=== PATIENT | female | born 1940 | race Caucasian/White ===

== ENCOUNTER → 2016-12-10 | Outpatient (CLI) | payer MEDICARE, BC ==
[~2016-12-10] MED LIST: CELEBREX200 MG PO; CENTRUM SILVER1 TA1 PO; COQ10150 MG PO; CYANOCOBAL1000 MCG/1 IM; LEVOTHYROXIN0.075 MG PO; MAREPA1200 MG PO; OMEPRAZOLE40 MG PO; SIMVASTATIN40 MG PO
== END ==
LOC: MC.RAD 10:35
DX: Z12.31 Encounter for screening mammogram for malignant neoplasm of breast (principal)

== ENCOUNTER 2017-08-09 01:42 | Emergency (ER) | payer MEDICARE, BC ==
[~2017-08-09] VITALS: Ht 162.6 cm; Wt 84.1 kg
[2017-08-09 01:45] VITALS: BP 183/87; TEMP 98
[2017-08-09] MEDS ORDERED: NORCO 325 MG-51 TAB PO (02:56)
[2017-08-09 03:43] VITALS: PULSE 78
== END 2017-08-09 03:45 | disposition home or self-care (01) ==
LOC: COL.ER 01:42
DX: S22.42XA Multiple fractures of ribs, left side, initial encounter for closed fracture (principal); K21.9 Gastro-esophageal reflux disease without esophagitis; W01.190A Fall on same level from slipping, tripping and stumbling with subsequent striking against furniture, initial encounter
CPT/HCPCS: A9284; J1885

== ENCOUNTER → 2018-01-24 | Outpatient (CLI) | payer MEDICARE, BC ==
[~2018-01-24] MED LIST changes: +NORCO 325 MG-51 TAB PO
== END ==
LOC: MC.RAD 11:20
DX: Z12.31 Encounter for screening mammogram for malignant neoplasm of breast (principal)

== ENCOUNTER → 2019-01-30 | Outpatient (CLI) | payer MEDICARE, BC | LOC: MC.RAD 10:50 | DX: Z12.31 Encounter for screening mammogram for malignant neoplasm of breast (principal) ==

== ENCOUNTER 2019-11-16 15:41 | Inpatient (IN) | payer MEDICARE, BC ==
[~2019-11-16] VITALS: Ht 162.6 cm; Wt 71.8 kg
[2019-11-16] MEDS ORDERED: LIPITOR 40MG TA40 MG PO (17:25)
[2019-11-16] MEDS ORDERED: NORVASC 5MG5 MG/TAB PO (17:25)
[2019-11-16] MEDS ORDERED: VITAMIN D 1001000 IU PO (17:26)
[2019-11-16] MEDS ORDERED: HCTZ12.5TAB PO (17:27)
[2019-11-16 18:25] VITALS: BP 148/80; PULSE 77; TEMP 99.7
[2019-11-16 18:31] LABS: BASO % 0.4 % (0.0-2.0); EOS % 0.1 % (0-4.0); GRAN % 80.4 % (42.2-75.2); MEAN CELL VOLUME 72 fl (80.0-100.0); MEAN CORPUSCULAR HGB CONC 29 g/dl (33.0-37.0); MEAN PLATELET VOLUME 9.4 fl (7.4-10.4); MONO # 0.4 (0.1-0.6); MONO % 5.7 % (1.7-9.3); PLATELET COUNT 357 K/mm3 (130-400); RED BLOOD COUNT 2.72 M/mm3 (4.10-5.30); REDCELL DISTRIBUTION WIDTH-CV 17.1 % (11.5-14.5)
[2019-11-16 18:34] LABS: INR 1.1 (0.8-3.0); PROTHROMBIN TIME 12.4 SECONDS (9.7-12.8)
[2019-11-16 18:35] LABS: HEMATOCRIT 19.6 % (37.0-47.0); MEAN CORPUSCULAR HEMOGLOBIN 21 pg (27.0-31.0)
[2019-11-16 18:36] LABS: HEMOGLOBIN 5.6 g/dl (12.5-16.0)
[2019-11-16 18:40] LABS: ALBUMIN 4.1 gm/dL (3.5-5.0); BILIRUBIN,TOTAL 0.3 mg/dL (0.0-1.0); CALCIUM 9.3 mg/dL (8.4-10.2); POTASSIUM 4.1 mmol/L (3.4-5.0); TOTAL PROTEIN 7.3 gm/dL (6.4-8.2)
--- NOTE | 2019-11-16 18:57 | NUR ---
PATIENT DIRECT ADMIT PER PRIMARY CARE FOR LOW HEMAGLOBIN OBTAINED THIS AM. ARRIVED TO FLOOR TO ROOM 354 FROM ADMISSIONS IN . UPON ARRIVAL A/O X 4. DENIES C/O PAIN. DOES REPORT MILD SOA ON EXCERTION. SEE FLOW SHEET FOR DOCUMENTED FVS WITH SPO2 HIGH 90S ON ROOM AIR. LUNG SOUNDS CTA THROUGHOUT TI ASCULTATION. REPORTS FEELING WEAK AND RUBBERY. STATES "I HAVE BEEN FEELING BAD SINCE ARY". MEDICATIONS REVIEWED AND UPDATED PER MED REC. IV ACCESS WITH 20G TO RIGHT AC OBTAINED AND LABS DRAWN X 2 ATTEMPTS. PATIENT SCORES LOW FALL RISK. PER NURSING JUDGEMENT HIGH FALL RISK D/T DIAGNOSIS AND REPORTS OF FEELING WEAK. DISCUSSED FALL RISK WITH PATIENT AND ENCOURAGED TO CALL WHEN NEEDING HELP. ACKNOWLEGES UNDERSTANDING. PLAN OF CARE DISCUSSED WITH PATIENT AND SON. VISITING POLICY REVIEWED AND ACKNOWLEDGED. PATIENT ORIENTED TO ROOM. NO QUESTIONS OR CONCERNS AT END OF VISIT.
[2019-11-16 19:00] LABS: MAGNESIUM 2.1 mg/dL (1.6-2.3); PHOSPHOROUS 3.8 mg/dL (2.5-4.5)
[2019-11-16 19:00] LABS: IRON,SERUM 15 ug/dL (35-150)
[2019-11-16 19:09] VITALS: BP 138/60; PULSE 78; TEMP 98
[2019-11-16 19:09] LABS: TOTAL IRON BINDING CAPACITY 397 ug/dL (265-497)
[2019-11-16 22:27] VITALS: BP 128/59; PULSE 75; TEMP 98.3
--- NOTE | 2019-11-16 22:30 | NUR ---
1unit RBC transfusion started and verified with LUCY George.
[2019-11-16 22:40] VITALS: BP 126/49; PULSE 71; TEMP 98.5
[2019-11-16 22:55] VITALS: BP 126/48; PULSE 69
[2019-11-16 23:25] VITALS: BP 129/56; PULSE 70
[2019-11-17] VITALS (12 sets, daily range): BP systolic 128–147; BP diastolic 55–84; PULSE 62–83; TEMP 98.1–98.8
--- NOTE | 2019-11-17 01:30 | NUR ---
1unit RBC transfused, pt had no complications or complaints, VSS.
[2019-11-17 03:34] LABS: HEMATOCRIT 19.5 % (37.0-47.0); HEMOGLOBIN 5.8 g/dl (12.5-16.0)
--- NOTE | 2019-11-17 06:36 | NUR ---
Second unit PRBC started and transfusing at this time. Verified with LUCY George.
--- NOTE | 2019-11-17 06:42 | NUR ---
Bedside shift report given to LUCY Lyons.
--- NOTE | 2019-11-17 09:21 | NUR ---
PRAVEEN attended clinical rounds. The patient is receiving her second unit of blood. She is to have an upper endoscopy today. PRAVEEN then followed up with the patient to discuss discharge plan. The patient lives alone in [place]. Her son, Pradeep Marroquin (ph#[phone]), lives in [place] and her daughter, Niru Serna (ph#[phone]), lives in [place]. The patient states that Niru came up to [place] to see her. She reports independence with ADLs and states that she may have a walker in her basement. The patient's PCP is Dr. Den Marcelino and she receives her medications at [facility]. She reports no difficulties obtaining her meds. The patient's advanced directives are in EMR. Her DPOA-HC is her her son (Pradeep) and daughter (Niru). The patient plans to return home upon discharge. She states that she has some concerns with how her mobility will be, when she is ready to discharge. PRAVEEN to ask the PA-C to order PT. PRAVEEN to continue to follow.
--- NOTE | 2019-11-17 11:16 | NUR ---
PATIENT TOLERATE SECOND UNIT OF BLOOD. IV SITE WAS CHANGED DUE TO INFILTRATION
[2019-11-17 13:08] LABS: CALCIUM 8.7 mg/dL (8.4-10.2); CREATININE, serum 0.71 (0.52-1.25); POTASSIUM 3.9 mmol/L (3.4-5.0)
[2019-11-17 14:39] LABS: HEMATOCRIT 23.1 % (37.0-47.0)
--- NOTE | 2019-11-17 18:01 | NUR ---
Patient is alert and oriented. Hgb level at 7.0. patient is sceduled for endoscopy and colonoscopy to find any abdominal bleeding. Patient signed conscent. Bowel prep starts this evening.
--- NOTE | 2019-11-17 20:00 | NUR ---
Received report from LUCY Lyons. Pt alert and oriented x4. Denies any pain or discomfort at this time. States feeling a little better today. Meds administered as ordered. IVF infusing to LAC, intact, dressing CDI. Tele monitor in place, leads checked. Pt understands POC and verbalized understanding of consuming bowel prep, consent signed for colonoscopy. Needs met at this time. call light wtihin reach.
[2019-11-17 22:49] LABS: HEMATOCRIT 24.8 % (37.0-47.0); HEMOGLOBIN 7.3 g/dl (12.5-16.0)
[2019-11-18] VITALS (11 sets, daily range): BP systolic 134–170; BP diastolic 52–94; PULSE 66–85; TEMP 97.4–98.7
--- NOTE | 2019-11-18 01:09 | NUR ---
Pt consumed all miralax bowel prep.
[2019-11-18 06:06] LABS: BASO % 0.7 % (0.0-2.0); EOS % 0.2 % (0-4.0); GRAN # 3.9 (1.4-6.5); LYMPH # 1.3 (1.2-3.4); LYMPH % 21.2 % (20.0-51.0); MEAN CELL VOLUME 76 fl (80.0-100.0); MEAN CORPUSCULAR HGB CONC 29 g/dl (33.0-37.0); MONO # 0.7 (0.1-0.6); MONO % 11.4 % (1.7-9.3); RED BLOOD COUNT 3.05 M/mm3 (4.10-5.30); REDCELL DISTRIBUTION WIDTH-CV 18.4 % (11.5-14.5)
[2019-11-18 06:09] LABS: HEMATOCRIT 23.1 % (37.0-47.0); MEAN CORPUSCULAR HEMOGLOBIN 22 pg (27.0-31.0); PLATELET COUNT 256 K/mm3 (130-400)
[2019-11-18 06:10] LABS: HEMOGLOBIN 6.8 g/dl (12.5-16.0)
[2019-11-18 06:18] LABS: ALBUMIN 3.1 gm/dL (3.5-5.0); BILIRUBIN,TOTAL 0.4 mg/dL (0.0-1.0); CALCIUM 8.3 mg/dL (8.4-10.2); CREATININE, serum 0.61 (0.52-1.25); POTASSIUM 3.6 mmol/L (3.4-5.0)
--- NOTE | 2019-11-18 06:23 | NUR ---
Pt verbalized use or BR having watery stools, blue/green in color. Meds administered. No complaints made during this shift. Call light within reach.
--- NOTE | 2019-11-18 06:24 | NUR ---
Received critical HGB 6.8 from lab. Received phone orders from GI MD Dr Shah to transfuse 1unit PRBC prior to colonoscopy. Orders placed, waiting for PRBC at this time.
--- NOTE | 2019-11-18 07:21 | NUR ---
Report given to LUCY Lyons.
[2019-11-18 15:42] LABS: HEMATOCRIT 30.6 % (37.0-47.0); HEMOGLOBIN 9.7 g/dl (12.5-16.0)
--- NOTE | 2019-11-18 20:09 | NUR ---
Received report from LUCY Lyons. Pt resting in bed comfortably. A/Ox4. Denies any pain or discomfort at this time however she states " I don't feel any better from when I first came here." NAD. Tele monitor in place, leads checked. INT to RH and LAC intact, flushed, dressing CDI. Needs met at this time. Call light within reach.
[2019-11-19] VITALS (11 sets, daily range): BP systolic 119–154; BP diastolic 68–82; PULSE 72–87; TEMP 97.9–99
--- NOTE | 2019-11-19 06:10 | NUR ---
Pt uneventful during this shift. Meds administered. Needs met. call light within reach.
[2019-11-19 07:05] LABS: BASO % 0.6 % (0.0-2.0); GRAN # 4.9 (1.4-6.5); GRAN % 69.8 % (42.2-75.2); LYMPH # 1.3 (1.2-3.4); LYMPH % 19.1 % (20.0-51.0); MEAN CELL VOLUME 77 fl (80.0-100.0); MEAN CORPUSCULAR HGB CONC 31 g/dl (33.0-37.0); MEAN PLATELET VOLUME 9.3 fl (7.4-10.4); MONO # 0.7 (0.1-0.6); MONO % 10.4 % (1.7-9.3); PLATELET COUNT 252 K/mm3 (130-400); RED BLOOD COUNT 3.51 M/mm3 (4.10-5.30); REDCELL DISTRIBUTION WIDTH-CV 19.5 % (11.5-14.5)
--- NOTE | 2019-11-19 07:10 | NUR ---
Report given to LUCY Lindquist.
[2019-11-19 07:14] LABS: CALCIUM 8.6 mg/dL (8.4-10.2); CREATININE, serum 0.62 (0.52-1.25); HEMATOCRIT 27.1 % (37.0-47.0); HEMOGLOBIN 8.4 g/dl (12.5-16.0); MEAN CORPUSCULAR HEMOGLOBIN 24 pg (27.0-31.0); POTASSIUM 3.4 mmol/L (3.4-5.0)
--- NOTE | 2019-11-19 07:40 | NUR ---
COMPLAINING OF HEADACHE 03/23. OFFERED TO CALL THE DR FOR TYLENOL ORDERS, PT SAID THAT WOULDN'T HELP AND SHE JUST NEEDED COFFEE. ASSESSMENT PERFORMED, MEDICATIONS GIVEN. PT REFUSED NORVASC, SAID "UNTIL THEY FIGURE OUT WHERE THIS BLEEDING IS COMING FROM IM NOT TAKING ANY NEW MEDICATIONS". TRIED TO EDUCATE ON PURPOSE OF MEDICATION AND IT'S ACTION IN THE BODY BUT PT STILL REFUSED. STARTED FRESH POT OF COFFEE AND BROUGHT HER A CUP. WARNED HER OF HEAT.
[2019-11-19] MEDS ORDERED: FERROUS SU325 MG/TAB PO (08:10)
--- NOTE | 2019-11-19 10:21 | NUR ---
ORTHOSTATIC BP'S PERFORMED ON PT. D/C'D RH IV DUE TO IT NOT FLUSHING AND PAINFUL DURING FLUSHING, WRAPPED LAC IV FOR SHOWER. GOWN, TOWELS, SOAP, DEODERANT PROVIDED.
[2019-11-19 16:59] LABS: HEMATOCRIT 31.3 % (37.0-47.0); HEMOGLOBIN 9.5 g/dl (12.5-16.0)
--- NOTE | 2019-11-19 17:27 | NUR ---
pt states lidocaine patch is assisting with the neck pain. pt had visit with daughter where PAGwendolyn, talked about the plan of care. medications given, bp meds on hold due to orthostatic bp being positive. pt headache earlier relieved with caffiene. no other needs at this time.
--- NOTE | 2019-11-19 20:00 | NUR ---
Received report from LUCY Lindquist. A/Ox4. Pt states feeling much better today. Anticipats going home tmrw. Lidocaince patch to back of neck removed. pt states relief of neck pain with use of patch. No complaints made at this time. INT to LAC intact, flushed, dressing CDI. Call light within reach.
[2019-11-20 03:18] VITALS: BP 157/79; PULSE 74; TEMP 98.6
--- NOTE | 2019-11-20 06:51 | NUR ---
Pt made no complaints throughout the night. Meds administered. Call light within reach.
--- NOTE | 2019-11-20 07:08 | NUR ---
Report given to LUCY Lyons.
[2019-11-20 07:09] LABS: BASO % 0.6 % (0.0-2.0); EOS % 0.8 % (0-4.0); GRAN # 3.3 (1.4-6.5); GRAN % 63.7 % (42.2-75.2); LYMPH # 1.1 (1.2-3.4); LYMPH % 22.2 % (20.0-51.0); MEAN CELL VOLUME 77 fl (80.0-100.0); MEAN CORPUSCULAR HGB CONC 31 g/dl (33.0-37.0); MEAN PLATELET VOLUME 9.6 fl (7.4-10.4); MONO # 0.6 (0.1-0.6); MONO % 12.5 % (1.7-9.3); PLATELET COUNT 219 K/mm3 (130-400); RED BLOOD COUNT 3.55 M/mm3 (4.10-5.30); REDCELL DISTRIBUTION WIDTH-CV 19.8 % (11.5-14.5)
[2019-11-20 07:13] VITALS: BP 137/79; PULSE 82; TEMP 98.9
[2019-11-20 07:31] LABS: CALCIUM 8.6 mg/dL (8.4-10.2); CHOLESTEROL RISK RATIO 2.8; CREATININE, serum 0.77 (0.52-1.25); POTASSIUM 3.4 mmol/L (3.4-5.0)
[2019-11-20 07:32] LABS: HEMATOCRIT 27.3 % (37.0-47.0); HEMOGLOBIN 8.4 g/dl (12.5-16.0); MEAN CORPUSCULAR HEMOGLOBIN 24 pg (27.0-31.0)
--- NOTE | 2019-11-20 11:10 | NUR ---
Patient is alert and oriented. denies any pain. clear lung sound, normal heart sound. 1+ edema on bilateral lower extremity. Patient verbalize she feels better compared to time of admission. Patient is excited about discharge today.
--- NOTE | 2019-11-20 12:38 | NUR ---
Patient received information on new medication Ferrous Sulfate, future appointment and Anemia diagnoses. IV site have some pus. Discontinued IV, cleaned the site with antiseptic towel. Patient discharged with Daughter.
== END 2019-11-20 11:55 | disposition home or self-care (01) | DRG 392 ==
LOC: MEDICAL 15:41
PROVIDERS: Internal Medicine Gastroenterology; Physician Assistant; ADMIT Student in an Organized Health Care Education/Training Program
PROC: 0DB78ZX Excision of Stomach, Pylorus, Via Natural or Artificial Opening Endoscopic, Diagnostic (ICD-10-PCS; 2019-11-18)
PROC: 0DB38ZX Excision of Lower Esophagus, Via Natural or Artificial Opening Endoscopic, Diagnostic (ICD-10-PCS; 2019-11-18)
PROC: 0DDL8ZX Extraction of Transverse Colon, Via Natural or Artificial Opening Endoscopic, Diagnostic (ICD-10-PCS; principal; 2019-11-18 09:00)
PROC: 0DB98ZX Excision of Duodenum, Via Natural or Artificial Opening Endoscopic, Diagnostic (ICD-10-PCS; 2019-11-18 09:00)
DX: K31.89 Other diseases of stomach and duodenum (principal); E87.1 Hypo-osmolality and hyponatremia; K92.1 Melena; D50.0 Iron deficiency anemia secondary to blood loss (chronic); K44.9 Diaphragmatic hernia without obstruction or gangrene; K21.9 Gastro-esophageal reflux disease without esophagitis; K58.9 Irritable bowel syndrome, unspecified; E03.9 Hypothyroidism, unspecified; Z66 Do not resuscitate; I95.1 Orthostatic hypotension; K57.90 Diverticulosis of intestine, part unspecified, without perforation or abscess without bleeding; K22.70 Barrett's esophagus without dysplasia; K64.0 First degree hemorrhoids; G89.29 Other chronic pain; M54.2 Cervicalgia; E78.5 Hyperlipidemia, unspecified; I10 Essential (primary) hypertension; M19.90 Unspecified osteoarthritis, unspecified site; D51.9 Vitamin B12 deficiency anemia, unspecified; Z90.710 Acquired absence of both cervix and uterus; Z87.891 Personal history of nicotine dependence
CPT/HCPCS: 99223-AI; 99232-AI; 99233-AI; 99239; C9113; J0360; J2704; J7030; P9016

== ENCOUNTER → 2019-11-23 | Outpatient (CLI) | payer MEDICARE, BC ==
[~2019-11-23] MED LIST changes: +FERROUS SU325 MG/TAB PO; +HCTZ12.5TAB PO; +LIPITOR 40MG TA40 MG PO; +NORVASC 5MG5 MG/TAB PO; +VITAMIN D 1001000 IU PO
[2019-11-23 10:34] LABS: HEMATOCRIT 32.8 % (37.0-47.0); HEMOGLOBIN 9.7 g/dl (12.5-16.0); MEAN CELL VOLUME 79 fl (80.0-100.0); MEAN CORPUSCULAR HEMOGLOBIN 23 pg (27.0-31.0); MEAN CORPUSCULAR HGB CONC 30 g/dl (33.0-37.0); MEAN PLATELET VOLUME 9.3 fl (7.4-10.4); PLATELET COUNT 254 K/mm3 (130-400); RED BLOOD COUNT 4.16 M/mm3 (4.10-5.30); REDCELL DISTRIBUTION WIDTH-CV 21.7 % (11.5-14.5)
[2019-11-23 10:46] LABS: CALCIUM 9.6 mg/dL (8.4-10.2); CREATININE, serum 0.77 (0.52-1.25); POTASSIUM 4.5 mmol/L (3.4-5.0)
== END ==
LOC: COL.LAB 09:29
PROVIDERS: Physician Assistant
DX: D64.9 Anemia, unspecified (principal)

== ENCOUNTER → 2021-04-08 | Outpatient (CLI) | payer MEDICARE, BC ==
[~2021-04-08] MED LIST changes: +PRILOSEC 20MG20 MG PO; +SYNTHROID0.075 MG/T PO; -VITAMIN D 1001000 IU PO; +VITAMIN D31000 IU PO
== END ==
LOC: MHCPAIN 10:30
DX: M47.812 Spondylosis without myelopathy or radiculopathy, cervical region (principal); M54.12 Radiculopathy, cervical region; M54.81 Occipital neuralgia; G89.29 Other chronic pain
CPT/HCPCS: G0463

== ENCOUNTER → 2021-04-16 | Outpatient (CLI) | payer MEDICARE, BC | LOC: MC.RAD 11:45 | DX: Z12.31 Encounter for screening mammogram for malignant neoplasm of breast (principal) ==

== ENCOUNTER → 2021-04-17 | Outpatient (CLI) | payer MEDICARE, BC | LOC: MHCPAIN | DX: M47.812 Spondylosis without myelopathy or radiculopathy, cervical region (principal); M54.81 Occipital neuralgia; M54.12 Radiculopathy, cervical region | CPT/HCPCS: J1040; J1100; Q9967 ==

== ENCOUNTER → 2021-04-30 | Outpatient (CLI) | payer MEDICARE, BC | LOC: MHCPAIN 10:32 | DX: M47.812 Spondylosis without myelopathy or radiculopathy, cervical region (principal); M54.2 Cervicalgia; R51.9 Headache, unspecified | CPT/HCPCS: G0463 ==

== ENCOUNTER → 2021-05-22 | Outpatient (CLI) | payer MEDICARE, BC | LOC: MHCPAIN 08:41 | DX: M47.812 Spondylosis without myelopathy or radiculopathy, cervical region (principal); M54.2 Cervicalgia; R51.9 Headache, unspecified | CPT/HCPCS: J0461 ==

== ENCOUNTER → 2021-05-27 | Outpatient (CLI) | payer MEDICARE, BC | LOC: MHCPAIN 10:52 | DX: M47.812 Spondylosis without myelopathy or radiculopathy, cervical region (principal) | CPT/HCPCS: G0463 ==

== ENCOUNTER → 2021-06-12 | Outpatient (CLI) | payer MEDICARE, BC | LOC: MHCPAIN 08:08 | DX: M47.812 Spondylosis without myelopathy or radiculopathy, cervical region (principal); M54.2 Cervicalgia; R51.9 Headache, unspecified | CPT/HCPCS: J0461 ==

== ENCOUNTER → 2021-07-10 | Outpatient (CLI) | payer MEDICARE, BC | LOC: MHCPAIN 09:10 | DX: M47.812 Spondylosis without myelopathy or radiculopathy, cervical region (principal); M54.2 Cervicalgia; R51.9 Headache, unspecified | CPT/HCPCS: G0463; J1100; J2250; J3010 ==

== ENCOUNTER → 2021-09-02 | Outpatient (CLI) | payer MEDICARE, BC | LOC: MHCPAIN 10:19 | DX: M47.812 Spondylosis without myelopathy or radiculopathy, cervical region (principal); M54.2 Cervicalgia; R51.9 Headache, unspecified | CPT/HCPCS: G0463 ==

== ENCOUNTER → 2021-12-31 | Outpatient (CLI) | payer MEDICARE, BC | LOC: MHCPAIN 09:49 | DX: M47.817 Spondylosis without myelopathy or radiculopathy, lumbosacral region (principal); M54.50 Low back pain, unspecified; M54.81 Occipital neuralgia; M54.2 Cervicalgia | CPT/HCPCS: G0463 ==

== ENCOUNTER → 2022-01-15 | Outpatient (CLI) | payer MEDICARE, BC | LOC: MHCPAIN 07:53 | DX: M47.817 Spondylosis without myelopathy or radiculopathy, lumbosacral region (principal); M53.3 Sacrococcygeal disorders, not elsewhere classified; M54.50 Low back pain, unspecified ==

== ENCOUNTER → 2022-02-05 | Outpatient (CLI) | payer MEDICARE, BC | LOC: MHCPAIN 08:30 | DX: M47.817 Spondylosis without myelopathy or radiculopathy, lumbosacral region (principal); M54.50 Low back pain, unspecified; M53.3 Sacrococcygeal disorders, not elsewhere classified | CPT/HCPCS: G0463 ==

== ENCOUNTER → 2022-04-06 | Outpatient (CLI) | payer MEDICARE, BC | LOC: MHCPAIN 12:25 | DX: M54.50 Low back pain, unspecified (principal); M47.817 Spondylosis without myelopathy or radiculopathy, lumbosacral region; M53.3 Sacrococcygeal disorders, not elsewhere classified | CPT/HCPCS: G0463; J1100; J2250; J3010 ==

== ENCOUNTER → 2022-04-20 | Outpatient (CLI) | payer MEDICARE, BC | LOC: MHCPAIN 10:09 | DX: M47.812 Spondylosis without myelopathy or radiculopathy, cervical region (principal); M54.2 Cervicalgia; M54.81 Occipital neuralgia; G44.86 Cervicogenic headache | CPT/HCPCS: G0463 ==

== ENCOUNTER → 2022-07-27 | Outpatient (CLI) | payer MEDICARE, BC | LOC: MHCPAIN 11:36 | DX: M47.898 Other spondylosis, sacral and sacrococcygeal region (principal); M53.3 Sacrococcygeal disorders, not elsewhere classified; M54.50 Low back pain, unspecified | CPT/HCPCS: G0260; J1040; Q9967 ==

== ENCOUNTER → 2022-08-24 | Outpatient (CLI) | payer MEDICARE, BC | LOC: MHCPAIN 10:54 | DX: M47.812 Spondylosis without myelopathy or radiculopathy, cervical region (principal); M47.896 Other spondylosis, lumbar region; M53.3 Sacrococcygeal disorders, not elsewhere classified; G44.86 Cervicogenic headache | CPT/HCPCS: G0463 ==

== ENCOUNTER → 2023-07-21 | Outpatient (CLI) | payer MEDICARE, BC | LOC: MHCPAIN 09:49 | DX: M54.12 Radiculopathy, cervical region (principal); M47.812 Spondylosis without myelopathy or radiculopathy, cervical region; G89.29 Other chronic pain | CPT/HCPCS: G0463 ==

== ENCOUNTER → 2023-08-09 | Outpatient (CLI) | payer MEDICARE, BC ==
[~2023-08-09] MED LIST changes: +Atropine 1 MG/10 ML SYRINGE IV ONE; +Glycopyrrolate 0.2 MG/ML 1 ML VIAL ONE; +Lidocaine PF 2% (20 MG/ML) 5 ML VIAL ONE; +Midazolam 2 MG/2 ML VIAL ONE; +ePHEDrine 50 MG/10 ML VIAL IV ONE; +fentaNYL 50 MCG/ML 2 ML VIAL ONE
== END ==
LOC: MHCPAIN 11:57
DX: M47.817 Spondylosis without myelopathy or radiculopathy, lumbosacral region (principal); M54.50 Low back pain, unspecified
CPT/HCPCS: J0461; J0665; J2250; J3010

== ENCOUNTER → 2023-10-05 | Outpatient (CLI) | payer MEDICARE, BC ==
[~2023-10-05] MED LIST changes: -Atropine 1 MG/10 ML SYRINGE IV ONE; -Glycopyrrolate 0.2 MG/ML 1 ML VIAL ONE; -Lidocaine PF 2% (20 MG/ML) 5 ML VIAL ONE; -Midazolam 2 MG/2 ML VIAL ONE; -ePHEDrine 50 MG/10 ML VIAL IV ONE; -fentaNYL 50 MCG/ML 2 ML VIAL ONE
== END ==
LOC: MHCPAIN 10:58
DX: M43.13 Spondylolisthesis, cervicothoracic region (principal); M41.25 Other idiopathic scoliosis, thoracolumbar region; M47.812 Spondylosis without myelopathy or radiculopathy, cervical region; M47.816 Spondylosis without myelopathy or radiculopathy, lumbar region
CPT/HCPCS: G0463

== ENCOUNTER → 2024-01-24 | Outpatient (CLI) | payer MEDICARE, BC ==
[~2024-01-24] MED LIST changes: +Iohexol 300 - 10 ML VIAL ONE; +Lidocaine PF 2% (20 MG/ML) 2 ML VIAL ONE
== END ==
LOC: MHCPAIN 10:38
DX: M54.12 Radiculopathy, cervical region (principal)
CPT/HCPCS: J1100; Q9967

== ENCOUNTER → 2024-02-16 | Outpatient (CLI) | payer MEDICARE, BC ==
[~2024-02-16] MED LIST changes: -Iohexol 300 - 10 ML VIAL ONE; -Lidocaine PF 2% (20 MG/ML) 2 ML VIAL ONE
== END ==
LOC: MHCPAIN 10:38
DX: M54.81 Occipital neuralgia (principal); M54.2 Cervicalgia
CPT/HCPCS: G0463

== ENCOUNTER → 2024-03-29 | Outpatient (CLI) | payer MEDICARE, BC | LOC: MHCPAIN 10:52 | DX: M54.81 Occipital neuralgia (principal); M47.812 Spondylosis without myelopathy or radiculopathy, cervical region; M54.2 Cervicalgia; M54.50 Low back pain, unspecified; G89.29 Other chronic pain | CPT/HCPCS: G0463 ==